=== PATIENT | female | born 1940 | race Caucasian/White ===

== ENCOUNTER 2023-10-29 00:07 | Emergency (ER) | payer MEDICARE, BC, SELFPAY ==
[2023-10-29 00:11] VITALS: BP 174/94; BMI 24.9
--- NOTE | 2023-10-29 00:37 | ED.GENMED ---
History of Present Illness
General
Chief Complaint: Fall
Source: patient
Exam Limitations: none
Time Seen by Provider: 10/29/23 00:12
History of Present Illness
History of Present Illness:
This is a 83 year old female that comes in by ambulance with c/o fall. States that she has been feeling weak and she needs to use a walker when she walks or a cane. States that she was standing at the BR sink and she turned around and lost her
balance. States that she fell onto the marble floor hitting her head. Denies any LOC. States that she has been SOB and has a headache. Denies any fever, chills, chest pain, abd pain, nausea, vomiting, diarrhea, dizziness, urinary burning.
Past History
Past History
ED Past Medical History: Arrthythmia (SVT), Cancer (Thyroid cancer), HTN, Hypothyroidism, Psychiatric (Depression, Anxiety) and Other (Polyarthritis, chronic back problems, esophagitis, Numbness arms and legs, Diverticulitis, Anemia, )
ED Past Surgical History: Appendectomy, Cholecystectomy, , Gynecological (Uterine suspension), Orthopedic (Bilateral hips, Right and left shoulder replacement. Bilateral knee replacements 4 times, Laminectomy, Right foot hammer toe, Left
carpal tunnel), Tonsilectomy and Other (gastric bypass, Parathyroidectomy, Gastroplasty, Breast reduction)
Social History
Tobacco: Non-smoker
Alcohol: Occasional
Drug: None
Personal:
Living: alone
Employment: Retired
Family History
Family History: Other
Review of Systems
Review of Systems
All Other Systems: ROS reviewed and negative except as documented in HPI and ROS
Constitutional: Reports no symptoms; Denies fever or chills
EENT: Reports no symptoms
Respiratory: Reports trouble breathing; Denies cough
Cardiac: Reports no symptoms; Denies chest pain
ABD/GI: Reports no symptoms; Denies abdominal pain, nausea, vomiting or diarrhea
: Reports no symptoms; Denies dysuria, frequency or urgency
Musculoskeletal: Reports no symptoms
Skin: Reports other (abrasion left sided of head)
Neurological: Reports headache; Denies dizzy
Psychiatric: Reports no symptoms
Phy Exam
General Physical Exam
General Presentation: well appearing and no apparent distress
General age: appears stated age
General Skin: warm and dry
General Habitus: elderly
General Mental: alert
General Hydration: appears well hydrated
ENT Exam
ENT Exam: TM's normal, pharynx normal and neck supple
Eye Exam
Eye Exam: EOMI
Cardiovascular Exam
Cardiovascular Exam: regular rate/rhythm and normal peripheral pulses
Pulmonary Exam
Pulmonary Exam: no respiratory distress, chest non tender, no rhonchi, no wheezing, no cough and other (Very fine crackles at bases)
Gastrointestinal Exam
Gastrointestinal Exam: normal bowel sounds, non tender, soft, no organomegaly, no pulsatile mass and non distended
Musculoskeletal Exam
Musculoskeletal Exam: full ROM and edema (+2 pitting edema of the lower legs)
Skin Exam
Skin Exam: normal color, warm/dry, no rash, no petechia and other (Large left sided hematoma of scalp with small abrasion. )
Psychiatric Exam
Psychiatric Exam: normal mood/affect
Course
Orders/Labs/Results
Orders:
Orders
10/29/23 00:36
CT Cervical Spine W/o Iv Contr Urgent
Comment:
Reason For Exam: fall, headache, neck tenderness
CT Head W/o Iv Contrast Urgent
Comment:
Reason For Exam: Fall, headache.
10/29/23 01:00
CR Chest - 2 Views Urgent
Comment:
Reason For Exam: SOB
10/29/23 01:03
Acetaminophen [Tylenol] 1,000 mg PO NOW STA
Vital Signs
Initial and Last Documented VS:
Initial Vital Signs
Temp Pulse Resp BP Pulse Ox
98.3 F 73 16 174/94 96
10/29/23 00:11 10/29/23 00:11 10/29/23 00:11 10/29/23 00:11 10/29/23 00:11
Last Documented Vital Signs
Temp Pulse Resp BP Pulse Ox
98.3 F 73 16 174/94 96
10/29/23 00:11 10/29/23 00:11 10/29/23 00:11 10/29/23 00:11 10/29/23 00:11
MDM/Problems Addressed
Differential Diagnosis Includes:
Accidental fall, scalp abrasion
MDM/Problems Addressed:
This is a 83 year old female that comes in with c/o fall. States that she was at the BR sink and she turned and lost her balance and fell onto the floor hitting her head. Denies any LOC but states that there was blood everywhere.
Will get CT of head and cervical spine. chest X-ray as patient c/o some SOB.
Chronic conditions affecting care:
Balance issues
Acute Exacerbation and/or Progression of Chronic Illness:
balance issues
*Radiology
Radiology exam reviewed: preliminary read by ED provider (Chest- Negative for active disease. ), radiology read reviewed (CT head, cervical spine-No acute fracture or malalgnment. 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
degenerative disc disease. Multilevel spinal canal and neural foraminal narrowing. Status post thyroidectomy. CT head- Left parietal scalp soft tissue swelling with subgalea ), all reviewed NAD by ED Provider (CT head cont-subgaleal hematoma. No
acute intracranial findings. No evidence of intracranial hemorrhage, mass-effect, midline shift, or extra-axial fluid collection. Diffuse cerebral and cerebellar volume loss with associated ex-vacuo dilation of the ventricles. There are
periventricular and deep ) and other (CT cont- white matter hypodensities which are nonspecific but likely related to chronic microvascular ischemic disease. Atherosclerotic vascular disease. Near opacification of the left maxillary sinus)
*Pulse Oximetry
Patient hypoxic: no
*EKG
Interpreted by ED Provider?: NA
Rate: EKG- N/A
*Filler Block Inserter Remover Interpretation
Rate: Filler Block Inserter Remover- N/A
*Critical Care Note
Total Time (30-74mins, 75-104mins- exclusive of procedures): Not Applicable
ED Attending Note
-
Portions of this chart may have been created with voice recognition software.� Occasional wrong word or��sound alike� substitutions may have occurred due to the inherent limitations of voice recognition software.
Discharge Plan
Departure
Patient Disposition: Home (Routine Discharge)
Date of Disposition: 10/29/23
Time of Disposition: 02:00
Patient with high blood pressure during this ER visit?: Yes
Condition: Good
Covid-19: Not Applicable
Discharge Problem:
Accidental fall, Minor head injury, Abrasion
Instructions: Head Injury in Adults (DC), Preventing falls in adults, Skin Abrasions (DC), BLOOD PRESSURE
Prescriptions:
No Action
celecoxib 200 MG capsule
200 mg PO BID
Omnaris 12.5 GM spray,non-aerosol
12.5 gm NS DAILYPRN PRN (Reason: SEASONAL ALLERGIES)
bupropion HCl 150 MG tablet sustained-release 12 hr
150 mg PO BID
allopurinol 100 MG tablet
100 mg PO DAILY Qty: 0
liothyronine 5 MICROGRAM tablet
5 mcg PO DAILY@0700
diltiazem HCl 30 MG tablet
30 mg PO TID
benzonatate 100 MG capsule
100 mg PO TIDPRN PRN (Reason: Cough) Qty: 30 0RF
trazodone 100 MG tablet
200 mg PO HS
pantoprazole 40 MG tablet,delayed release (DR/EC)
40 mg PO DAILY
duloxetine 30 MG capsule,delayed release(DR/EC)
60 mg PO DAILY
Slow-Mag
1 tab PO BID
potassium chloride 10 mEq capsule, extended release
10 meq PO BID
diphenoxylate-atropine 2.5-0.025 mg tablet
1 tab PO TIDPRN PRN (Reason: gi upset)
acetaminophen [Tylenol Extra Strength] 500 mg Tablet
1,000 mg PO TID
cyanocobalamin (vitamin B-12) 1,000 mcg/mL Solution
1,000 mcg IM QMONTH
ferrous sulfate 325 mg (65 mg iron) Tablet
325 mg PO DAILY
ergocalciferol (vitamin D2) [Vitamin D2] 1,250 mcg (50,000 unit) capsule
1,250 mcg PO WESA@0800
duloxetine 30 mg Capsule,Delayed Release(Dr/Ec)
30 mg PO DAILY@2000
Systane (PF) 0.4-0.3 % Dropperette
1 drp BOTH EYES BIDPRN PRN (Reason: dry eye)
Creon 12,000-38,000 -60,000 unit capsule,delayed release(DR/EC)
2 cap PO MEALS
Myrbetriq 25 mg tablet extended release 24 hr
25 mg PO DAILY
oxycodone [OxyContin] 20 mg tablet,oral only,ext.rel.12 hr
20 mg PO BID
cephalexin 500 mg tablet
500 mg PO TID Qty: 24 0RF
Rx Instructions:
tolerated Ancef well in hospital
levothyroxine 150 mcg Tablet
150 mcg PO DAILY@0700 Qty: 30 0RF
Santyl 250 unit/gram Ointment
1 applic topical DAILY Qty: 30 0RF
clotrimazole [Athlete's Foot (clotrimazole)] 1 % Cream
1 applic topical DAILY Qty: 30 0RF
oxycodone 10 mg tablet
10 mg PO Q8HPRN PRN (Reason: severe pain) Qty: 0 0RF
Patient Comments:
patient states 1-2 doses per day
Activity Restrictions/Additional Instructions:
As discussed, your CT of the head and cervical spine is negative for any acute process. You have a small abrasion on the left sided of the head but there was no area that needed suturing. You may use Ice to the head to help decrease the swelling.
Tylenol for any headache. Your chest x-ray is negative for any any active disease. Follow up with the family doctor. IF YOU HAVE ANY OTHER CONCERNS PLEASE RETURN TO THE EMERGENCY ROOM.
Interventions
Interventions:
*Risk Screen - Suicide Last Done: 10/29/23 00:11
*General Assessment Last Done: 10/29/23 00:11
*Neglect/Abuse Screening Last Done: 10/29/23 00:11
*ED COVID-19 Vaccine History Last Done: 10/29/23 00:11
ED- Neurological Assessment Last Done: 10/29/23 00:42
ED-Skin Assessment Last Done: 10/29/23 00:42
Discharge Date and Time
Print Language: TAJIK
[2023-10-29] MEDS: TYLENOL 1000 MG PO (01:16)
[2023-10-29 07:55] VITALS: BP 156/74
== END 2023-10-29 08:05 | disposition home or self-care (01) ==
LOC: EMR 00:07
PROVIDERS: EMERGENCY PHYSICIAN Emergency Medicine; FAMILY PHYSICIAN Internal Medicine
DX: S09.90XA Unspecified injury of head, initial encounter (principal); S00.03XA Contusion of scalp, initial encounter; S00.01XA Abrasion of scalp, initial encounter; R06.02 Shortness of breath; R51.9 Headache, unspecified; W18.30XA Fall on same level, unspecified, initial encounter; I10 Essential (primary) hypertension; E03.9 Hypothyroidism, unspecified; F32.A Depression, unspecified; F41.9 Anxiety disorder, unspecified; K57.92 Diverticulitis of intestine, part unspecified, without perforation or abscess without bleeding; M13.0 Polyarthritis, unspecified; Z90.49 Acquired absence of other specified parts of digestive tract; Z96.643 Presence of artificial hip joint, bilateral; Z96.612 Presence of left artificial shoulder joint; Z96.611 Presence of right artificial shoulder joint; Z96.653 Presence of artificial knee joint, bilateral; Z85.850 Personal history of malignant neoplasm of thyroid; Z98.84 Bariatric surgery status; Z88.1 Allergy status to other antibiotic agents; Z88.0 Allergy status to penicillin; Z88.2 Allergy status to sulfonamides
CPT/HCPCS: 99284; 70450; 71046; 72125

== ENCOUNTER → 2023-12-02 13:17 | Outpatient (REF) | payer MEDICARE, BC, SELFPAY ==
[2023-12-02 15:48] LABS: % Basophils 0.6 % (0-2); % Eosinophils 0.8 % (0-6); % Immature Granulocytes 0.4 % (0-0.5); % Monocytes 6.6 % (1.7-9.3); % Neutrophils 75.6 % (42.2-75.2); Absolute Basophils 0.1 10^3/uL (0-0.2); Absolute Eosinophils 0.1 10^3/uL (0-0.7); Absolute Lymphocytes 1.2 10^3/uL (1.2-3.4); Absolute Monocytes 0.5 10^3/uL (0.1-0.6); Absolute Neutrophils 5.9 10^3/uL (1.4-6.5); Hematocrit 29.5 % (37.0-47.0); Hemoglobin 9.5 g/dL (12.0-16.0); Mean Corp Hgb Conc. 32.2 g/dL (33.0-37.0); Mean Corpuscular Hgb 31.5 pg (27.0-31.0); Mean Corpuscular Volume 97.7 fL (81.0-99.0); Mean Platelet Volume 9.6 fL (7.4-10.4); Nucleated Red Blood Cells % 0 %; Platelet Count 309 10^3/uL (130-400); Red Blood Cell Count 3.02 10^6/uL (4.20-5.40); Red Cell Dist. Width 16.9 % (11.5-14.5); White Blood Cell Count 7.8 10^3/uL (4.8-10.8)
[2023-12-02 15:56] LABS: ALT (SGPT) 19 U/L (0-35); AST (SGOT) 26 U/L (14-36); Albumin 4.1 g/dl (3.5-5.0); Alkaline Phosphatase 172 U/L (38-126); Blood Urea Nitrogen 24 mg/dl (7-17); Calcium 8.6 mg/dl (8.4-10.2); Carbon Dioxide 26 mmol/L (22-30); Chloride 103 mmol/L (98-107); Glucose 96 mg/dl (70-99); Magnesium 1.6 mg/dl (1.6-2.3); Potassium 4.4 mmol/L (3.5-5.1); Sodium 139 mmol/L (135-145); Total Bilirubin 0.5 mg/dl (0.2-1.3); Total Protein 6.5 g/dl (6.3-8.2); eGFR 50.48
[2023-12-02 16:12] LABS: Amylase 80 U/L (30-110); Lipase 35 U/L (23-300); Uric Acid 3.1 mg/dl (2.5-6.2)
[2023-12-02 16:13] LABS: Free T3 2.36 pg/ml (2.77-5.27); Free T4 0.96 ng/dl (0.78-2.19)
[2023-12-02 16:41] LABS: Vitamin D, 25-OH*** 22.5 ng/mL (30-80)
[2023-12-02 16:47] LABS: Vitamin B12 422 pg/ml (239-931)
== END ==
LOC: HWRAD 13:17
PROVIDERS: ATTENDING PHYSICIAN Internal Medicine
DX: R06.01 Orthopnea (principal); K86.1 Other chronic pancreatitis; E21.3 Hyperparathyroidism, unspecified; E79.0 Hyperuricemia without signs of inflammatory arthritis and tophaceous disease; E55.9 Vitamin D deficiency, unspecified; E03.9 Hypothyroidism, unspecified; R63.1 Polydipsia; I10 Essential (primary) hypertension; E87.6 Hypokalemia; E83.42 Hypomagnesemia; D51.0 Vitamin B12 deficiency anemia due to intrinsic factor deficiency
CPT/HCPCS: 71046; 80053; 82150; 82306; 82607; 83690; 83735; 83970; 84439; 84443; 84481; 84550; 85025

== ENCOUNTER 2024-03-27 18:15 | Observation (INO) | payer MEDICARE, BC, SELFPAY ==
[2024-03-27] VITALS (21 sets, daily range): BP systolic 109–176; BP diastolic 74–98; BMI 22.5; BMI 22.1
--- NOTE | 2024-03-27 09:20 | ED.GENMED ---
History of Present Illness
<Mike Connors DO, Resident - Last Filed: 03/27/24 14:46>
General
Chief Complaint: Fall
Source: patient and records
Time Seen by Provider: 03/27/24 08:37
History of Present Illness
History of Present Illness:
83-year-old female with past medical history of bilateral hip and knee replacement with multiple recurrent hip dislocations, ambulatory dysfunction, SVT, thyroid cancer s/p resection presents for an unwitnessed mechanical fall. Patient reports she
was getting out of bed this morning when she began to slip and fell onto her butt. Patient reports she does not take blood thinners, she did not lose consciousness and did not hit her head. Patient reports living alone at home. Patient reports
not being able to walk after the incident. Patient is now complaining of right sided hip pain, and believes her hip may be dislocated, this is happened previously. Patient follows Dr. Deleon [facility] orthopedics. Of note while in the ED
patient was noted to go into atrial fibrillation on the monitor.
Past History
<Mike Connors DO, Resident - Last Filed: 03/27/24 14:46>
Past History
ED Past Medical History: Arrthythmia (SVT), Cancer (Thyroid cancer), HTN, Hypothyroidism, Psychiatric (Depression, Anxiety) and Other (Polyarthritis, chronic back problems, esophagitis, Numbness arms and legs, Diverticulitis, Anemia, )
ED Past Surgical History: Appendectomy, Cholecystectomy, , Gynecological (Uterine suspension), Orthopedic (Bilateral hips, Right and left shoulder replacement. Bilateral knee replacements 4 times, Laminectomy, Right foot hammer toe, Left
carpal tunnel), Tonsilectomy and Other (gastric bypass, Parathyroidectomy, Gastroplasty, Breast reduction)
Social History
Tobacco: Non-smoker
Alcohol: Occasional
Drug: None
Personal:
Living: alone
Employment: Retired
Family History
Family History: Other
Review of Systems
<Mike Connors DO, Resident - Last Filed: 03/27/24 14:46>
Review of Systems
Constitutional: Reports no symptoms
Respiratory: Reports trouble breathing (Reports slight shortness of breath)
Cardiac: Reports palpitations; Denies chest pain
ABD/GI: Reports no symptoms
Musculoskeletal: Reports joint pain
Phy Exam
<Mike Connors DO, Resident - Last Filed: 03/27/24 14:46>
General Physical Exam
General Presentation: well appearing and no apparent distress
General Skin: dry and cool
Cardiovascular Exam
Cardiovascular Exam: no edema, no murmur and irregularly irregular
Pulmonary Exam
Pulmonary Exam: lungs clear and no respiratory distress
Gastrointestinal Exam
Gastrointestinal Exam: non tender, soft and non distended
Musculoskeletal Exam
Musculoskeletal Exam: neuro vasc intact (Pulses and lower extremity intact bilaterally) and other (Right sided hip pain worse to palpation on the lateral greater trochanter, right foot foot is internally rotated. Range of motion limited to severe
pain. Groin nontender to palpation, pain worse lateral right hip.)
Course
<Mike Connors DO, Resident - Last Filed: 03/27/24 14:46>
Orders/Labs/Results
Orders:
Orders
03/27/24 09:01
Electrocardiogram (*1) Urgent
Reason for Study: Atrial Fibrillation
EKG- Treatment ONCE
HYDROmorphone [Dilaudid] 0.5 mg IV NOW STA
03/27/24 09:29
Hip, Right 2-3 Views [CR Hip - RT w/wo Pel 2-3 Vw*] Urgent
Comment:
Reason For Exam: fall
Include a pelvis x-ray?: Yes
03/27/24 09:59
ASA Classification Routine
Propofol [Diprivan] 100 mg IV NOW STA
03/27/24 10:31
Case Management Consult ONCE
Case Management Consult: Discharge Planning
03/27/24 10:47
Knee Immobilizer Right-Treatme ONCE
Hip, Right 1 View [CR Hip - RT without Pel 1 Vw] Urgent
Comment: portable
Reason For Exam: Postreduction right hip dislocation
03/27/24 10:52
Physical Therapy Consult [Pt Eval And Treat] Urgent
Activity Level: Ambulate
Vital Signs
Initial and Last Documented VS:
Initial Vital Signs
Temp Pulse Resp BP Pulse Ox
97.4 F 78 18 147/82 95
03/27/24 08:40 03/27/24 08:40 03/27/24 08:40 03/27/24 08:40 03/27/24 08:40
Last Documented Vital Signs
Temp Pulse Resp BP Pulse Ox
97.7 F 69 11 149/90 96
03/27/24 11:19 03/27/24 16:34 03/27/24 16:30 03/27/24 16:00 03/27/24 16:34
<Eleazar Castro, DO - Last Filed: 03/27/24 16:54>
Orders/Labs/Results
Orders:
Orders
03/27/24 09:01
Electrocardiogram (*1) Urgent
Reason for Study: Atrial Fibrillation
EKG- Treatment ONCE
HYDROmorphone [Dilaudid] 0.5 mg IV NOW STA
03/27/24 09:29
Hip, Right 2-3 Views [CR Hip - RT w/wo Pel 2-3 Vw*] Urgent
Comment:
Reason For Exam: fall
Include a pelvis x-ray?: Yes
03/27/24 09:59
ASA Classification Routine
Propofol [Diprivan] 100 mg IV NOW STA
03/27/24 10:31
Case Management Consult ONCE
Case Management Consult: Discharge Planning
03/27/24 10:47
Knee Immobilizer Right-Treatme ONCE
Hip, Right 1 View [CR Hip - RT without Pel 1 Vw] Urgent
Comment: portable
Reason For Exam: Postreduction right hip dislocation
03/27/24 10:52
Physical Therapy Consult [Pt Eval And Treat] Urgent
Activity Level: Ambulate
Vital Signs
Initial and Last Documented VS:
Initial Vital Signs
Temp Pulse Resp BP Pulse Ox
97.4 F 78 18 147/82 95
03/27/24 08:40 03/27/24 08:40 03/27/24 08:40 03/27/24 08:40 03/27/24 08:40
Last Documented Vital Signs
Temp Pulse Resp BP Pulse Ox
97.7 F 69 11 149/90 96
03/27/24 11:19 03/27/24 16:34 03/27/24 16:30 03/27/24 16:00 03/27/24 16:34
Procedures
<Eleazar Castro, DO - Last Filed: 03/27/24 16:54>
Moderate Sedation
ASA Risk Score: Class II
Chart and allergies reviewed: Yes
Consent for anesthesia obtained: Yes
Time out completed (validating right patient & procedure): Yes
Moderate Sedation Start Time(when first medication is given): 10:34
History of difficult intubation: No
Airway free of obstruction: Yes
Patient has a gag reflex: Yes
Patient is able to open mouth: Yes
Patient has no dentures: Yes
Patient has no loose teeth: Not applicable
Medication administered by Provider during Moderate Sedation: IV Propofol (mg)
Total dose administered: 40
Time drug administered: 10:34
Moderate Sedation Procedure End Time: 10:54
Splint Check
Splint checked by provider?: Yes
Circulation/Movement/Sensation post splint application: brisk cap refill
Splinting/Sling Placement
Right Knee:
Procedure completed by: [email or web address]
Pre-splint extermity exam: neurovascular intact
Type of splint: knee immobilizer
Splint material: universal
Splint checked by provider?: Yes
Joint/Fracture Reduction
Right Hip:
Indication for procedure:: dislocation
Procedure completed by: [email or web address]
Consent form signed: Yes
Joint reduced: with anesthesia sedation
Injury was: closed
Further treatement: no treatment needed
Post reduction exam: stable
Capillary Refill: normal
Normal distal neurovascular exam?: Yes
<Mike Connors DO, Resident - Last Filed: 03/27/24 14:46>
MDM/Problems Addressed
Differential Diagnosis Includes:
Fracture, hip dislocation, mechanical fall
MDM/Problems Addressed:
83-year-old female with extensive orthopedic history including multiple hip dislocations after bilateral hip replacements
Had an unwitnessed mechanical fall this morning around 5 AM when getting out of bed, slid onto her butt and now reporting right-sided hip pain
Right leg internally rotated, tender to palpation on the greater trochanter. Range of motion/physical exam of the right leg is limited due to severe pain. Left leg nonpainful with full range of motion
Patient lives alone and reports not taking blood thinners, reports not hitting her head or losing consciousness
Will order hip and pelvis bilateral 2 view x-ray
Hip x-ray demonstrates right-sided prosthetic hip dislocation
Patient was kept n.p.o.
Consent for hip reduction obtained scanned in chart
Right hip reduction with [place] technique under conscious sedation with propofol was attempted
Repeat radiograph confirmed successful reduction
Right knee knee immobilizer placed
Symptomatic management with IV Dilaudid
Patient was noted to have an irregular heart rhythm on monitor and exam. Patient reports not following cardiology or a primary care physician and is not on blood thinners.
EKG to evaluate arrhythmia. EKG returned as likely sinus, however rhythm was irregular
manager environmental and PT/OT consult as patient lives alone, cannot drive and is having multiple recurrent falls
Chronic conditions affecting care: Arrhythmia
Acute Exacerbation and/or Progression of Chronic Illness: Arrhythmia
<Mike Connors DO, Resident - Last Filed: 03/27/24 14:46>
*Critical Care Note
Total Time (30-74mins, 75-104mins- exclusive of procedures): Not Applicable
<Eleazar Castro DO - Last Filed: 03/27/24 16:54>
Update Note
Update Note:
Update patient seen by physical therapy and case management patient does not want to go to rehab, apparently has caregivers already at home,
5 PM update seen by PT recommending rehab seen by case management has caregivers apparently caregiver has arrived in the ER she is elderly herself, she believes patient needs to be admitted due to weather issues etc will ask hospitalist admit orders
to
ED Attending Note
<Mike Connors DO, Resident - Last Filed: 03/27/24 14:46>
-
Portions of this chart may have been created with voice recognition software.� Occasional wrong word or��sound alike� substitutions may have occurred due to the inherent limitations of voice recognition software.
<Eleazar Castro DO - Last Filed: 03/27/24 16:54>
ED Attending Note
Patient seen and examined by attending physician: Yes
I performed a history and physical exam of patient and discussed management with resident, I reviewed resident's note and agree with documented findings and plan of care.: Yes
ED Attending Note:
Seen with resident examined independently elderly female bilateral hip replacements on the right many years ago in [place] on the left by Dr. Deleon locally, presents with right hip pain status post slipping out of bed no head strike,
Plan will be x-ray and proceed accordingly
Discharge Plan
Departure
Patient Disposition: Admit
Date of Disposition: 03/27/24
Time of Disposition: 14:11
Admit to: Med/Surg
Presentation/result/management discussed w/ accepting MD/DO: Hospitalist
Patient with high blood pressure during this ER visit?: No
Condition: Good
Covid-19: Not Applicable
Discharge Problem:
Dislocation, hip closed
Instructions: Hip Dislocation (DC), Preventing falls in adults, MODERATE SEDATION ADULT
Prescriptions:
No Action
celecoxib 200 MG capsule
200 mg PO BID
Omnaris 12.5 GM spray,non-aerosol
12.5 gm NS DAILYPRN PRN (Reason: SEASONAL ALLERGIES)
bupropion HCl 150 MG tablet sustained-release 12 hr
150 mg PO BID
allopurinol 100 MG tablet
100 mg PO DAILY Qty: 0
liothyronine 5 MICROGRAM tablet
5 mcg PO DAILY@0700
diltiazem HCl 30 MG tablet
30 mg PO TID
benzonatate 100 MG capsule
100 mg PO TIDPRN PRN (Reason: Cough) Qty: 30 0RF
trazodone 100 MG tablet
200 mg PO HS
pantoprazole 40 MG tablet,delayed release (DR/EC)
40 mg PO DAILY
duloxetine 30 MG capsule,delayed release(DR/EC)
60 mg PO DAILY
Slow-Mag
1 tab PO BID
potassium chloride 10 mEq capsule, extended release
10 meq PO BID
diphenoxylate-atropine 2.5-0.025 mg tablet
1 tab PO TIDPRN PRN (Reason: gi upset)
acetaminophen [Tylenol Extra Strength] 500 mg Tablet
1,000 mg PO TID
cyanocobalamin (vitamin B-12) 1,000 mcg/mL Solution
1,000 mcg IM QMONTH
ferrous sulfate 325 mg (65 mg iron) Tablet
325 mg PO DAILY
ergocalciferol (vitamin D2) [Vitamin D2] 1,250 mcg (50,000 unit) capsule
1,250 mcg PO WESA@0800
duloxetine 30 mg Capsule,Delayed Release(Dr/Ec)
30 mg PO DAILY@1999
Systane (PF) 0.4-0.3 % Dropperette
1 drp BOTH EYES BIDPRN PRN (Reason: dry eye)
Creon 12,000-38,000 -60,000 unit capsule,delayed release(DR/EC)
2 cap PO MEALS
Myrbetriq 25 mg tablet extended release 24 hr
25 mg PO DAILY
oxycodone [OxyContin] 20 mg tablet,oral only,ext.rel.12 hr
20 mg PO BID
cephalexin 500 mg tablet
500 mg PO TID Qty: 24 0RF
Rx Instructions:
tolerated Ancef well in hospital
levothyroxine 150 mcg Tablet
150 mcg PO DAILY@0700 Qty: 30 0RF
Santyl 250 unit/gram Ointment
1 applic topical DAILY Qty: 30 0RF
clotrimazole [Athlete's Foot (clotrimazole)] 1 % Cream
1 applic topical DAILY Qty: 30 0RF
oxycodone 10 mg tablet
10 mg PO Q8HPRN PRN (Reason: severe pain) Qty: 0 0RF
Patient Comments:
patient states 1-2 doses per day
Referrals:
UNKNOWN - PT DOES,NOT KNOW [Family Provider] -
Activity Restrictions/Additional Instructions:
Use your knee immobilizer, follow-up with your orthopedist
Interventions
Interventions:
*Risk Screen - Suicide Last Done: 03/27/24 08:47
*General Assessment Last Done: 03/27/24 08:47
*Neglect/Abuse Screening Last Done: 03/27/24 08:47
*ED COVID-19 Vaccine History Last Done: 03/27/24 08:47
ED-Musculoskeletal Assessment Last Done: 03/27/24 08:50
ED- Neurological Assessment Last Done: 03/27/24 08:50
ED-Skin Assessment Last Done: 03/27/24 11:30
Discharge Date and Time
Print Language: TUNISIAN
[2024-03-27] MEDS: DILAUDID 0.5 MG IV (09:27)
--- NOTE | 2024-03-27 13:58 | CM ---
Addendum entered by Dayanara Alvarado 03/27/24 16:14:
Patient still adamant about going home. CM asked how patient's recent attempt of getting up to go to the BR went. She said it went fine. CM asked if patient needed 2 assist to get up and go to the BR. She stated yes but that 'this set up is not like
my set up at home. I have grab bars everywhere and my toilet is higher than this one. This toilet is very very low.' Patient was stand by when getting up out of bed with walker. She needed minimal 1 assist when lower herself to the toilet seat. She
then needed 2 assist when she was attempting to lift herself off the toilet. She was a min assist of 1 when getting back into the bed.
CM explained conerns of patient needing 2 people to urinate. CM asked if there is a BSC in the home. Patient shared that there was. CM asked patient to please ask her friend to set up her BSC near her bed. Patient also shared she had hardwoord
floors to the bathroom- there is no carpet in that area.
CM asked patient if she would be able to confirm with her neighbor if she would be able to stay with her tonight. Patient's neighbor said: 'absoultey'.
DISCHARGE PLAN: Home with neighbor and caregivers 5xs/week.
Addendum entered by Dayanara Alvarado 03/27/24 14:00:
DISCHARGE PLAN: Home with support of caregivers and neighbor.
Original Note:
Cm consult placed. PT recommending STR. CM introduced self and role. CM went over PT's recommendations and explained to patient her STR stay would be OOP. Patient stated that she can not afford and she is ok with going home. CM asked if patient was
sure and she replied, 'Yes, I'll be ok. I have a neighbor who will take care of me tonight and I have caregivers coming in my home 5 days/week. I just called my neighbor to come pick me up. I told her to call me back in 30 minutes to confirm the
time'.
Above shared with attending physician.
--- NOTE | 2024-03-27 17:53 | HPS.HSE ---
Family Physician
-
Family Physician: NOT KNOW UNKNOWN - PT DOES
Chief Complaint
-
Ambulatory Dysfunction
History of Present Illness
Patient is an 83 y/o female past medical history of paroxysmal SVT, Hypertension, Hypothyroidism, Chronic Pain and Recurrent Hip Dislocation who presents with ambulatory dysfunction. Patient reports she slid out of bed today. She twisted her right
hip which resulted in a dislocation fof her right hip replacement. Patient was brought to the emergency department where her hip was reduced. Unfortunately patient continue to require assistance of two people during therapy evaluation, and PT is
recommends SNF as patient is unsafe to return home alone.
Medical History
Past Medical History
Past Medical History: Reports Other
Additional Past Medical History:
Paroxysmal SVT
Essential Hypertension
Hypothyroidism
Chronic Anemia
Anxiety/Depression
Chronic Pain with Opioid Dependence
Pancreatic Insufficiency
Gout
Osteoarthritis
Past Surgical History: Reports Other
Additional Past Surgical History:
Bilateral Total Knee Replacements with Bilateral Revisions
Bilateral Total Hip Arthroplasty
Gastric Bypass Surgery
Cholecystectomy
Social History
Tobacco: Non-smoker
Alcohol: None
Living: Alone
Family History
Family History: Not pertinent
Allergies / Home Medications
Allergies reflects when Allergies were last updated in [facility].
Home Medications with original date entered in [facility]
Allergy/Medication List:
Allergies
Allergy/AdvReac Type Severity Reaction Status Date / Time
amoxicillin [Amoxicillin] Allergy rash, neck Verified 10/29/23 00:45
and facial
swelling
levofloxacin [From Levaquin] Allergy itchy,hives Verified 10/29/23 00:45
Penicillins Allergy rash, neck Verified 10/29/23 00:45
and facial
swelling
Sulfa (Sulfonamide Allergy rash, neck Verified 10/29/23 00:45
Antibiotics) and facial
swelling
sulfasalazine Allergy Unknown Verified 10/29/23 00:45
[From Azulfidine]
Home Medications
celecoxib 200 mg capsule 200 mg PO BID joint pain 09/14/09
ciclesonide 50 mcg nasal spray (Omnaris) 12.5 gm NS DAILYPRN PRN SEASONAL ALLERGIES 01/03/16
allopurinol 100 mg tablet 100 mg PO DAILY Gout ##0 08/11/19
bupropion HCl 150 mg tablet,12 hr sustained-release 150 mg PO BID Depression 08/11/19
diltiazem HCl 30 mg tablet 30 mg PO TID Heart disease/condition 08/11/19
liothyronine 5 mcg tablet 10 mcg PO DAILY@0700 Thyroid 08/11/19
duloxetine 30 mg capsule,delayed release 60 mg PO DAILY Mental Health/Anxiety 01/10/21
magnesium chloride 71.5 mg (magnesium chloride) tablet,delayed release (Slow-Mag) 71.5 mg PO BID Supplement ##0 01/10/21
pantoprazole 40 mg tablet,delayed release 40 mg PO DAILY Gastrointestinal issue 01/10/21
trazodone 100 mg tablet 100 mg PO HS Mental Health/Anxiety 01/10/21
acetaminophen 500 mg tablet (Tylenol Extra Strength) 1,000 mg PO TID Pain 01/13/23
cyanocobalamin (vitamin B-12) 1,000 mcg/mL injection solution 1,000 mcg IM QMONTH Supplement 01/13/23
diphenoxylate-atropine 2.5 mg-0.025 mg tablet 1 tab PO TIDPRN PRN gi upset 01/13/23
duloxetine 30 mg capsule,delayed release 30 mg PO HS Pain 01/13/23
ergocalciferol (vitamin D2) 1,250 mcg (50,000 unit) capsule (Vitamin D2) 1,250 mcg PO WESA@0800 Supplement 01/13/23
ferrous sulfate 325 mg (65 mg iron) tablet 325 mg PO DAILY Supplement 01/13/23
pxzonu-dkhrdalv-jxybqpu 12,000-38,000-60,000 unit capsule,delayed rel (Creon) 4 cap PO MEALS pancreas issues 01/13/23
oxycodone 20 mg tablet,crush resistant,extended release 12 hr (OxyContin) 20 mg PO BIDPRN PRN severe pain 01/13/23
peg 400-propylene glycol (PF) 0.4 %-0.3 % eye drops in a dropperette (Systane (PF)) 1 drp BOTH EYES BIDPRN PRN dry eye 01/13/23
potassium chloride 10 mEq capsule,extended release 10 meq PO BID Electrolyte Repletion 01/13/23
levothyroxine 150 mcg tablet 150 mcg PO DAILY@0700 #30 tabs 01/16/23
fluticasone propionate 50 mcg/actuation nasal spray,suspension 1 spray intranasal DAILY 03/27/24
mirabegron 50 mg tablet,extended release 24 hr (Myrbetriq) 50 mg PO DAILY 03/27/24
oxycodone 10 mg tablet 10 mg PO Q4HPRN PRN severe pain 03/27/24
sucralfate 100 mg/mL oral suspension 10 ml PO ACHSPRN PRN ulcers 03/27/24
Review of Systems
-
A 12 point ROS was completed and negative except as noted: Yes
Constitutional: Denies Fever or Chills
Respiratory: Denies Cough or Trouble Breathing
Cardiac: Denies Chest Pain or Palpitations
Abdomen/GI: Denies Abdominal Pain
Physical Exam
Vital Signs
Vital Signs
Temp Pulse Resp BP Pulse Ox
97.7 F 69 11 149/90 96
03/27/24 11:19 03/27/24 16:34 03/27/24 16:30 03/27/24 16:00 03/27/24 16:34
Physical Exam
General: Comfortable and Conversant
HEENT: Anicteric and Moist mucous membranes
Respiratory: Clear and Non Labored Respirations
Cardiac: S1/S2 and Regular Rhythm
GI: Soft and Non Tender
Rectal: Deferred by Provider
Musculoskeletal: No Clubbing and No Cyanosis
Skin: Warm and Dry
Neuro: Awake, Alert, Oriented and Nonfocal/grossly intact
Psych: Calm
Data Reviewed
-
Diagnostic Radiology: Report Reviewed by me
Old Records: Reviewed
Impression/Plan
-
Acute Ambulatory Dysfunction / Recurrent Right Hip Dislocation
-Consult PT/OT
-Case Management involved for discharge planning
Paroxysmal SVT
-Continue diltiazem
Hypothyroidism
-Continue levothyroxine and liothyronine
Chronic Anemia
-Continue iron supplement
Anxiety/Depression
-Continue bupropion, duloxetine and trazodone
Chronic Pain with Opioid Dependence
-Continue OxyContin and Oxycodone
-Continue Celebrex and duloxetine
Pancreatic Insufficiency following gastric bypass
-Continue Creon
DVT proph: Lovenox
Code Status: Full Code
--- NOTE | 2024-03-27 18:00 | W.PN.UPDATE ---
Update Note
Progress Note Update
This note serves as an addendum to the H&P by windshield installer DAVID Bria MORFIN
HPI
83F Lives alone HX bilateral hip and knee replacement with multiple recurrent hip dislocations, ambulatory dysfunction, SVT, thyroid cancer s/p resection seen at ER
- reports presents for an unwitnessed mechanical fall.
- reports she was getting out of bed then she began to slip and fell onto her butt.
- unable to walk after the incident due to Rt. hip pain, and believes her hip may be dislocated
- not on blood thinners,
- not lose consciousness
- denied hitting head
Patient follows Dr. Dele[facility] orthopedics.
At ED :
Dislocated Rt Hip was successfully reduced under sedation anaesthesia
Reviewed VS:
Vital Signs
Temp Pulse Resp BP Pulse Ox
97.7 F 69 11 149/90 96
03/27/24 11:19 03/27/24 16:34 03/27/24 16:30 03/27/24 16:00 03/27/24 16:34
PE
Gen: NAD
HEENT: atraumatic, anicteric
Neck: supple
Cor: no edema, no murmur and irregularly irregular
Lungs: clear and no respiratory distress
GI: non tender, soft and non distended
MS:
Right sided hip pain worse to palpation on the lateral greater trochanter, right foot foot is internally rotated.
Range of motion limited to severe pain.
Groin nontender to palpation, pain worse lateral right hip.
Data: pending
Last hospitalist admission: DATE OF ADMISSION: 01/13/2023 - DATE OF DISCHARGE: 01/16/2023
Discharge Diagnosis:
inter toe digits cellulitis
ASSESSMENT & PLAN
Recurrent dislocated Rt prosthetic Hip
S/P reduced under sedation at ER
Acute gait dysfunction
Lives alone
- PT/OT. CRM consult for safe disposition
HX Paroxysmal SVT
- continue CCB
Essential HTN
- continue CCB
Hypothyroidism
- continue levothyroxine
- continue liothyronine
Chronic Anemia
- stable
Anxiety/Depression
- continue Bupropion, Cymbalta and Trazodone
Gout
- continue Allopurinol
DVT ppx: Lovenox
Code: Full
Obs MS
[2024-03-27 18:25] LABS: Hemoglobin 10.6 g/dL (12.0-16.0); Mean Corp Hgb Conc. 33.1 g/dL (33.0-37.0); Mean Corpuscular Volume 99.7 fL (81.0-99.0); Mean Platelet Volume 9.8 fL (7.4-10.4); Platelet Count 188 10^3/uL (130-400); Red Blood Cell Count 3.21 10^6/uL (4.20-5.40); Red Cell Dist. Width 17.2 % (11.5-14.5); White Blood Cell Count 7.9 10^3/uL (4.8-10.8)
[2024-03-27 18:49] LABS: Blood Urea Nitrogen 21 mg/dl (7-17); Calcium 7.8 mg/dl (8.4-10.2); Carbon Dioxide 24 mmol/L (22-30); Chloride 103 mmol/L (98-107); Estimated Creatinine Clearance 33 ml/min; Glucose 187 mg/dl (70-99); Potassium 3.5 mmol/L (3.5-5.1); Sodium 133 mmol/L (135-145)
[2024-03-27] MEDS: CELEBREX 200 MG PO (21:12)
[2024-03-27] MEDS: OXYCONTIN (CONTROLLED RELEASE) 20 MG PO (21:12)
[2024-03-27] MEDS: KCL 10 MEQ PO (21:13)
[2024-03-27] MEDS: TYLENOL 1000 MG PO (21:13)
[2024-03-27] MEDS: LOVENOX 40 MG SC (21:13)
[2024-03-27] MEDS: CYMBALTA DELAYED RELEASE 30 MG PO (21:13)
[2024-03-27] MEDS: CARDIZEM 30 MG PO (21:14)
[2024-03-27] MEDS: WELLBUTRIN SR (12 hour sustained release) 150 MG PO (21:15)
[2024-03-27] MEDS: DESYREL 100 MG PO (23:02)
[2024-03-28] MEDS: SYNTHROID 150 MCG PO (04:39)
[2024-03-28] MEDS: CYTOMEL 10 MICROGRAM PO (04:39)
[2024-03-28] MEDS: MAGNESIUM OXIDE 500 MG PO (09:15)
[2024-03-28] MEDS: CELEBREX 200 MG PO (09:15)
[2024-03-28] MEDS: FEOSOL 325 MG PO (09:15)
[2024-03-28] MEDS: WELLBUTRIN SR (12 hour sustained release) 150 MG PO (09:15)
[2024-03-28] MEDS: ZENPEP DELAYED RELEASE CAPSULE 4 CAPSULE PO ×2 (09:15→11:41)
[2024-03-28] MEDS: TYLENOL 1000 MG PO (09:16)
[2024-03-28] MEDS: CYMBALTA DELAYED RELEASE 60 MG PO (09:16)
[2024-03-28] MEDS: KCL 10 MEQ PO (09:18)
[2024-03-28] MEDS: OXYCONTIN (CONTROLLED RELEASE) 20 MG PO (09:18)
[2024-03-28] MEDS: PROTONIX 40 MG PO (09:18)
[2024-03-28] MEDS: ZYLOPRIM 100 MG PO (09:18)
[2024-03-28] MEDS: CARDIZEM 30 MG PO ×2 (09:21→15:38)
[2024-03-28] MEDS: MYRBETRIQ EXTENDED RELEASE 50 MG PO (09:22)
[2024-03-28 09:24] VITALS: BP 133/81
[2024-03-28 12:30] VITALS: BP 125/82; PULSE 81; O2SAT 95
[2024-03-28 13:02] VITALS: BP 125/82; PULSE 81; O2SAT 95
--- NOTE | 2024-03-28 13:19 | W.PN.HOSP.TC ---
Addendum entered and electronically signed by Shanon Howard MD 03/28/24 15:11:
total DC time 36 min
Original Note:
Today's Communication/Plan
-
DC home with HH
Assessment / Plan
Assessment / Plan
HPI: 83 y/o female past medical history of paroxysmal SVT, Hypertension, Hypothyroidism, Chronic pain and Recurrent Hip Dislocation; who presented with ambulatory dysfunction.
Patient reported that she slid out of bed on DOA. She twisted her right hip which resulted in a dislocation of her right hip replacement. Patient was brought to the emergency department where her hip was reduced. Unfortunately patient continue to
require assistance of two people during therapy evaluation, and PT is recommends SNF as patient was unsafe to return home alone.
A/P:
# Acute Ambulatory Dysfunction / Recurrent Right Hip Dislocation
s/p reduction in the ED
PT/OT recc rehab vs home. Patient prefers to return home, declined SNF
# Paroxysmal SVT
Continue diltiazem
# Hypothyroidism
Continue levothyroxine and liothyronine
# Chronic Anemia
Continue iron supplement
# Anxiety/Depression
Continue bupropion, duloxetine and trazodone
# Chronic Pain with Opioid Dependence
Continue OxyContin and Oxycodone
Continue Celebrex and duloxetine
# Pancreatic Insufficiency following gastric bypass
Continue Creon
DVT proph: Lovenox
Code Status: Full Code
Anticipated Discharge: Today
Subjective/Interval History
-
Date of Service: March 28, 2024
Objective Data
-
Vital Signs:
Vital Signs
Temp Pulse Resp BP Pulse Ox
36.4 C 72 17 133/81 95
03/28/24 09:24 03/28/24 09:24 03/28/24 09:24 03/28/24 09:24 03/28/24 09:24
I&O
03/27/24 03/28/24 03/29/24
06:59 06:59 06:59
Intake Total 960 / 960
Balance 960 / 960
Review of Systems
-
All other systems: Reviewed and negative
Physical Exam
-
General: Well Developed, Well Nourished, No Apparent Distress, Comfortable and Conversant
HEENT: Normocephalic and Atraumatic
Respiratory: Clear to Auscultation and Non Labored Respirations; Negative Accessory Resp Muscle Use
Cardiac: Regular Rhythm and S1/S2
GI: Soft, Nontender and Nondistended
Genito-urinary: No Costovertebral Tender
Neuro: Awake and Alert
Psych: Calm and Intact Judgement/Insight
Data Reviewed
-
Diagnostic Radiology: Report Reviewed by me
Labs: Labs Reviewed by me
--- NOTE | 2024-03-28 14:07 | CM ---
Met with pt at bedside
Pt reports she lives alone in a 1 story home; ramp access at entrance
At baseline ADL's with assist (has private caretakers from 12-4PM daily except Thursday's; has a friend who assists prn and at night), prepares on meals, ambulates with rolling walker
SNF - [facility] in past
HH - [facility] in past
Has ride home at discharge
PCP - Kristan Wilson
Pharm - [facility]
Discussed [facility]
PT/OT recs - home vs SNF. Pt refusing SNF - wants to return home. Accepting of VN
Requested [facility]
Plan - anticipate home with [facility]
--- NOTE | 2024-03-28 14:25 | VNURNOTE ---
Home Health Liaison met with patient to discuss [facility] nurse/therapy, visits, schedule and homebound status. Patient is agreeable and understands that visits at home will be 2-3 x per week to assess and teach medical management. [facility] brochure provided
with contact information. Patient is aware that [facility] will contact them for start of care in 1-2 days after discharge from .
[facility] referral completed in [facility].
--- NOTE | 2024-03-28 15:05 | W.DCSUMMARY ---
Discharge Summary
Discharge Data
Date of Admission: 03/27/24
Date of Discharge: 03/28/24
-
Pending Results: No
Hospital Course
Principal Diagnosis:
Acute Ambulatory Dysfunction / Recurrent Right Hip Dislocation status post reduction in the emergency room
Chronic Diagnoses:�
Paroxysmal supraventricular tachycardia, on diltiazem
Hypothyroidism, on levothyroxine and liothyronine
Chronic Anemia
Anxiety/Depression, on bupropion, duloxetine and trazodone
Chronic pain with opioid dependence
Pancreatic Insufficiency following gastric bypass, on Creon
Consultations:�
None
Procedures:�
Reduction of right hip dislocation in the emergency room
Clinical course:�
This is a 83-year-old female, with past medical history as stated above, who presented with ambulatory dysfunction.
She reported that she slid out of bed, twisted her right hip and resulted in dislocation of her right hip replacement.
Problem 1:
Acute Ambulatory Dysfunction / Recurrent Right Hip Dislocation status post reduction in the emergency room.
She was seen by PT OT and was recommended rehab versus home. Patient stated that she preferred to return home, declined SNF.
She was discharged home with home health.
As for the rest of her medical problems, they were stable during her hospital stay.
Discharge Plan
-
Patient Disposition: Home with Home Care
Discharge Diagnosis/Procedures: Recurrent Right Hip Dislocation status post reduction in the ER
Condition: Fair
Diet: As tolerated
Activity: As tolerated
Driving Restrictions: Not until seen by your Dr
Referrals:
UNKNOWN - PT DOES,NOT KNOW [Family Provider] - in less than 1 week
Prescriptions:
Continued
celecoxib 200 MG capsule
200 mg PO BID
Omnaris 12.5 GM spray,non-aerosol
12.5 gm NS DAILYPRN PRN (Reason: SEASONAL ALLERGIES)
bupropion HCl 150 MG tablet sustained-release 12 hr
150 mg PO BID
allopurinol 100 MG tablet
100 mg PO DAILY Qty: 0
liothyronine 5 MICROGRAM tablet
10 mcg PO DAILY@0700
diltiazem HCl 30 MG tablet
30 mg PO TID
trazodone 100 MG tablet
100 mg PO HS
pantoprazole 40 MG tablet,delayed release (DR/EC)
40 mg PO DAILY
duloxetine 30 MG capsule,delayed release(DR/EC)
60 mg PO DAILY
Slow-Mag 71.5 mg Tablet,Delayed Release (Dr/Ec)
71.5 mg PO BID Qty: 0
potassium chloride 10 mEq capsule, extended release
10 meq PO BID
diphenoxylate-atropine 2.5-0.025 mg tablet
1 tab PO TIDPRN PRN (Reason: gi upset)
acetaminophen [Tylenol Extra Strength] 500 mg Tablet
1,000 mg PO TID
cyanocobalamin (vitamin B-12) 1,000 mcg/mL Solution
1,000 mcg IM QMONTH
ferrous sulfate 325 mg (65 mg iron) Tablet
325 mg PO DAILY
ergocalciferol (vitamin D2) [Vitamin D2] 1,250 mcg (50,000 unit) capsule
1,250 mcg PO WESA@0800
duloxetine 30 mg Capsule,Delayed Release(Dr/Ec)
30 mg PO HS
Systane (PF) 0.4-0.3 % Dropperette
1 drp BOTH EYES BIDPRN PRN (Reason: dry eye)
Creon 12,000-38,000 -60,000 unit capsule,delayed release(DR/EC)
4 cap PO MEALS
oxycodone [OxyContin] 20 mg tablet,oral only,ext.rel.12 hr
20 mg PO BIDPRN PRN (Reason: severe pain)
levothyroxine 150 mcg Tablet
150 mcg PO DAILY@0700 Qty: 30 0RF
sucralfate 100 mg/mL Suspension
10 ml PO ACHSPRN PRN (Reason: ulcers)
fluticasone propionate 50 mcg/actuation [place],Suspension
1 spray INTRANASAL DAILY
mirabegron [Myrbetriq] 50 mg Tablet Extended Release 24 Hr
50 mg PO DAILY
oxycodone 10 mg tablet
10 mg PO Q4HPRN PRN (Reason: severe pain)
Patient Comments:
03/27/24: up to 5 doses daily
Discharge Orders:
Discharge Patient (As Directed); Ordered 03/28/24
Ordered By: Shanon Howard
Discharge Date and Time
Print Language: MOHAWK
[2024-03-28] MEDS: ROXICODONE 10 MG PO (15:14)
[2024-03-28] MEDS: TYLENOL PO (15:39)
== END 2024-03-28 16:15 | disposition home health service (06) ==
LOC: 2 SOUTH 18:15
PROVIDERS: Physician Assistant Medical; ADMITTING PHYSICIAN Internal Medicine; ATTENDING PHYSICIAN Internal Medicine; EMERGENCY PHYSICIAN Emergency Medicine
DX: T84.020A Dislocation of internal right hip prosthesis, initial encounter (principal); Y83.1 Surgical operation with implant of artificial internal device as the cause of abnormal reaction of the patient, or of later complication, without mention of misadventure at the time of the procedure; Y79.2 Prosthetic and other implants, materials and accessory orthopedic devices associated with adverse incidents; R26.2 Difficulty in walking, not elsewhere classified; W06.XXXA Fall from bed, initial encounter; Y93.89 Activity, other specified; Y92.003 Bedroom of unspecified non-institutional (private) residence as the place of occurrence of the external cause; I48.91 Unspecified atrial fibrillation; F41.9 Anxiety disorder, unspecified; D64.9 Anemia, unspecified; M10.9 Gout, unspecified; I47.19 Other supraventricular tachycardia; G89.29 Other chronic pain; M19.90 Unspecified osteoarthritis, unspecified site; K86.89 Other specified diseases of pancreas; I10 Essential (primary) hypertension; F32.A Depression, unspecified; I49.1 Atrial premature depolarization; E03.9 Hypothyroidism, unspecified; Z96.643 Presence of artificial hip joint, bilateral; Z96.653 Presence of artificial knee joint, bilateral; Z85.850 Personal history of malignant neoplasm of thyroid; Z60.2 Problems related to living alone; Z90.49 Acquired absence of other specified parts of digestive tract; Z79.890 Hormone replacement therapy; Z98.84 Bariatric surgery status; Z88.1 Allergy status to other antibiotic agents; Z88.0 Allergy status to penicillin; Z88.2 Allergy status to sulfonamides
CPT/HCPCS: 27265; 29505; 73501; 73502; 80048; 85027; 93005; 96374; 97116; 97166; 99152; 99285; G0378